=== PATIENT | male | born 1965 | race Caucasian/White ===

== ENCOUNTER → 2017-09-14 | Outpatient (CLI) | payer BC ==
[~2017-09-14] VITALS: Ht 175.3 cm; Wt 83.9 kg
[~2017-09-14] MED LIST: PRILOSEC20 MG PO
== END | disposition home or self-care (01) ==
LOC: AMB 08:00
DX: K44.9 Diaphragmatic hernia without obstruction or gangrene (principal); K64.8 Other hemorrhoids; Z86.19 Personal history of other infectious and parasitic diseases; K21.9 Gastro-esophageal reflux disease without esophagitis; K58.2 Mixed irritable bowel syndrome
CPT/HCPCS: 88305; 88342 TC